=== PATIENT | female | born 1940 | race Caucasian/White ===

== ENCOUNTER → 2017-09-04 | Outpatient (CLI) | payer OTHER, BC | LOC: NUC 10:06 | DX: M85.89 Other specified disorders of bone density and structure, multiple sites (principal); Z78.0 Asymptomatic menopausal state ==

== ENCOUNTER → 2017-09-26 | Outpatient (CLI) | payer OTHER, BC | LOC: RAD 03:46 | DX: Z12.31 Encounter for screening mammogram for malignant neoplasm of breast (principal) ==

== ENCOUNTER → 2018-03-19 | Outpatient (CLI) | payer OTHER, BC | LOC: ULTRA 08:58 | DX: R10.11 Right upper quadrant pain (principal); K80.20 Calculus of gallbladder without cholecystitis without obstruction; K76.89 Other specified diseases of liver ==

== ENCOUNTER → 2018-04-02 | Outpatient (CLI) | payer OTHER, BC | LOC: CAT 09:01 | DX: K80.20 Calculus of gallbladder without cholecystitis without obstruction (principal); K57.30 Diverticulosis of large intestine without perforation or abscess without bleeding; J98.11 Atelectasis; K76.89 Other specified diseases of liver; M47.896 Other spondylosis, lumbar region ==

== ENCOUNTER 2018-04-24 05:33 | Observation (INO) | payer OTHER, BC ==
[~2018-04-24] VITALS: Ht 154.9 cm; Wt 68.0 kg
--- NOTE | ~2018-04-24 | O ---
[facility] [place] [address] OPERATIVE REPORT Name: YAHAIRA CHANCE Room #: 455-P [facility] MKaz#: [id number] Admission: 04/24/18 Attend Phys: Bright Fish MD Discharge: Date of : 44 Report #: [id number] THIS REPORT FOR: //name// CC: Yovani Strickland MD DATE OF SERVICE: 04/24/2018 PREOPERATIVE DIAGNOSIS: Cholecystitis with cholelithiasis. POSTOPERATIVE DIAGNOSIS: Cholecystitis with cholesterolosis. PROCEDURE PERFORMED: Laparoscopic cholecystectomy with intraoperative cholangiogram. ANESTHESIA: General. SURGEON: Bright Fish MD COMPLICATIONS: None. ESTIMATED BLOOD LOSS: 5 mL. FINDINGS: Gallbladder did have significant adhesions over it consistent with inflammation. There is some adhesion in the right lateral abdomen of the right colon to the wall. These were taken down. The gallbladder was opened off the field contained small soft cholesterol material possibly what was seen on ultrasound. DESCRIPTION OF PROCEDURE: With the patient under general anesthesia, IV antibiotic was administered. Timeout was performed. Abdomen was prepped and draped in sterile fashion. A 0.25%% Marcaine was used to anesthetize the skin. The patient has an infraumbilical incision also 2 incisions. I decided to go above the umbilicus. A small curved incision about 2 cm was made above the umbilicus. Fascia was identified. The fascia was then grasped with hemostat. Fascia was then opened under visualization. A 0 Vicryl suture was placed on the fascia for retraction. Veress needle was then placed through the peritoneum. Abdominal cavity was then insufflated with CO2 without difficulty. After creating pneumoperitoneum pressure of 15, 11 mm trocar was placed into the pneumoperitoneum without difficulty. Two 5 mm trocars were placed in the right upper quadrant and a 5 mm trocar was placed in the right epigastrium. There was some adhesion involving the ascending colon to the abdominal wall. These were taken down. The patient does have some pain that goes lower on her right side. Possibly could be due to these adhesions. The gallbladder was lifted over the [facility] [address] [place] [address] OPERATIVE REPORT Name: YAHAIRA CHANCE Room #: 455-P [facility]..#: [id number] Admission: 04/24/18 Attend Phys: Bright Fish MD Discharge: Date of : 42 Report #: [id number] liver and there was extensive adhesion on the ventral surface of the gallbladder. These adhesions were taken down. The peritoneum was then dissected free medial and laterally. The cystic duct was then isolated. The common duct was partially visualized. Noted to be medial and posteriorly located. The common duct was in the usual position. The cystic duct to the gallbladder junction was identified. Clip was placed here. Cholangiogram catheter was then inserted. Fluoroscopic cholangiogram was obtained. Common bile duct filled out well. The cholangiogram catheter was identified in the cystic duct. No defect seen in the common duct. Dye flowed readily into the duodenum. The cholangiogram catheter was then removed. The proximal cystic duct was then clipped x 2. The cystic duct was then divided. The anterior branch of the cystic artery was smaller size. This was clipped x 2 proximally and 1 distally and then divided. A larger lateral posterior artery was found. This was also clipped x 2 proximally and 1 distally and then divided. Gallbladder was free from the liver bed, placed in a specimen bag, retrieved through the infraumbilical port. Palpating of the gallbladder and really feeling stone. The gallbladder was opened off the field. There is a millimeter size, soft cholesterol material, possibly what was seen on ultrasound. The patient's liver bed was checked. Hemostasis obtained. By: 2143 Bright Fish MD /nt
--- NOTE | ~2018-04-24 | PATH ---
[facility] [place] [address] PATHOLOGY RPT PROCEDURE Name: ADA CHANCE Room #: 455-P [facility] Dede Benitez#: [id number] Admission: 04/24/18 Date of : 44 Discharge: 04/25/18 Report #: [id number] Path Case #: [id number] [facility] Accession Number: [id number] . 01 Material submitted: . BIOPSY GALLBLADDER . 01 Clinical history: . Cholecystitis, cholelithiasis . 02 Diagnosis: Gallbladder, cholecystectomy: - Mild chronic cholecystitis. - No stones identified (please see gross dictation). (IUV:amirah; 04/28/2018) QMS/04/28/2018 . 02 Electronically signed: . Adrienne Baig MD, Pathologist NPI- [id number] . 01 Gross description: . The specimen is received in formalin, labeled "Ada Jackelin, gallbladder". Received is a previously opened gallbladder measuring 8.1 x 2.8 x 1.3 cm in greatest dimensions displaying avery-copeland serosal surfaces. Opening the specimen reveals a velvety, light copeland mucosa with a gallbladder wall thickness of 0.1 cm. No distinct nodules or lesions are noted grossly. Calculi are not present upon filtration of the gallbladder and the specimen container, and no masses or lesions are noted grossly. Ceramic Designer sections from the cystic neck, body, and fundus of the gallbladder are submitted in cassette A1. (CAA; 04/25/2018) QAC/QAC . 02 Pathologist provided ICD-10: K81.1 . 02 CPT . 318644 Performed at: [address], [place] [id number] MD Merritt Ward MD Phone: [phone] Performed at: [address], [place] [id number] MD Adrienne Baig MD Phone: [phone]
--- NOTE | ~2018-04-24 | H ---
[facility] [place] [address] HISTORY AND PHYSICAL Name: YAHAIRA CHANCE Room #: PRE [facility] M.R.#: [id number] Admission: Attend Phys: Bright Fish MD Discharge: Date of : 42 Report #: [id number] THIS REPORT FOR: //name// CC: Yovani Strickland PREOPERATIVE DIAGNOSES: Cholecystitis with cholelithiasis. HISTORY OF PRESENT ILLNESS: The patient is a 77-year-old who has had abdominal pain. The patient was seen by Dr. Strickland and an ultrasound showed multiple mobile gallstones. There is also gallbladder wall thickening. The patient thought that her pain started when she was taking anti-inflammatory because of arthritis in her right knee. The patient also has been taking omeprazole, which has not seemed to help the pain. She has had 4 episodes of fairly significant pain. The pain is in the mid upper abdomen occasionally. It is in the lower part of the abdomen. She has had associated nausea. No vomiting. She does have increased belching. No bloating. No diarrhea. The patient has trouble eating food such as raw vegetables, broccoli. No problem with spicy foods. The patient had a colonoscopy 3 years ago. The patient back in 1992 was seen in this office for abdominal pain evaluation. There is a note that suggested that possibly her symptoms are due to gallbladder. The patient did have an EGD back then. She did have H. pylori back in 1992, was treated with ampicillin, Flagyl and Pepto-Bismol. The patient did have a CT scan after I saw her in the office because some of her pain is lower and her elderly age. The patient's gallbladder appeared normal. There is no wall thickening. No ductal dilatation. The stones are not visible on CAT scan. Her bowels looked okay. There is diverticulosis, but no evidence of a diverticulitis. The patient has grade 1 anterolisthesis of L4. The CT finding was discussed with the patient and she was recommended to proceed with laparoscopic cholecystectomy. PAST MEDICAL HISTORY: The patient has arthritis in her knee, injury from playing tennis. PAST SURGICAL HISTORY: She had . She had umbilical hernia repair when she was 19. ALLERGIES: SHE IS ALLERGIC TO SULFA AND POSSIBLE PENICILLIN AND ALSO HAS ISSUES WITH NASAL SPRAYS. MEDICATIONS: Atenolol 25 daily, sulindac 150 daily, atorvastatin 10 mg daily, omeprazole 40 mg daily. FAMILY HISTORY: Mother with kidney disease. Sibling with diabetes. SOCIAL HISTORY: The patient is retired. [place] [address] HISTORY AND PHYSICAL Name: YAHAIRA CHANCE Room #: [facility]..#: [id number] Admission: Attend Phys: Bright Fish MD Discharge: Date of : 42 Report #: [id number] REVIEW OF SYSTEMS: Unremarkable. PHYSICAL EXAMINATION: GENERAL: She is an elderly female in no acute distress. HEENT: Pupils react to light. Sclerae are nonicteric. Oropharynx is clear. Extraocular muscles are intact. NECK: Soft and supple, no masses, no JVD. LUNGS: Clear to auscultation. No wheezes. No rhonchi. HEART: Regular rate and rhythm. No murmur or gallop. ABDOMEN: Soft, mild to moderate tenderness in right upper quadrant. This is localized to the area of gallbladder. No diffuse tenderness, guarding or rigidity. There is no mass, no ascites. EXTREMITIES: No cyanosis, clubbing, edema. She does have arthritic changes in right knee. IMPRESSION AND PLAN: The patient is a 77-year-old with episodes of abdominal pain. Part of this even dates back to 1992. She did have Helicobacter pylori back then that was treated. She had an ultrasound that showed gallstones and some wall thickening. CT scan was performed. No tumors or masses identified. The gallstone was not seen on CT. The wall does not look thick on the CT scan. The patient, I believe, has symptomatic cholecystitis with cholelithiasis. Surgical intervention is recommended. The patient is being brought in for laparoscopic cholecystectomy. The procedure was discussed in detail. Risk of bleeding, infection, common bile duct injury was discussed. The patient understands and wishes to proceed. By: 1621 1717 Bright Fish MD /nt
--- NOTE | ~2018-04-24 | EKG ---
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
[~2018-04-24 05:33] MED LIST: ATENOLOL 25 MG25 M1 PO; CALCIUM 500 +1 EAC5 PO; FISH OIL 1,001000 M2 PO; HYDROCHLOROTHIA25 M2 PO; LIPITOR10 MG PO; OMEPRAZOLE40 MG PO; SULINDAC 150 M150 MG PO
[2018-04-24 08:44] LABS: CALCIUM 8.9 mg/dL (8.5-10.1); CREATININE 0.7 mg/dL (0.6-1.0); POTASSIUM 3.3 mmol/L (3.5-5.1)
[2018-04-24 09:34] VITALS: BP 138/64
[2018-04-24 12:25] VITALS: BP 111/51
[2018-04-24 15:34] VITALS: BP 116/59
[2018-04-24 19:18] VITALS: BP 133/60
[2018-04-24 23:38] VITALS: BP 145/53
[2018-04-25 04:28] VITALS: BP 115/52
[2018-04-25 05:58] LABS: HEMATOCRIT 33.9 % (37.0-47.0); HEMOGLOBIN 11.7 gm/dL (12.0-15.0); MCH 29.3 pg (26.0-34.0); MCHC 34.5 g/dL (28.0-37.0); MCV 85.1 fL (80.0-100.0); RBC 3.98 mil/uL (4.20-5.00); RDW 14.2 % (10.5-14.5); WBC 8.6 thou/uL (4.0-11.0)
[2018-04-25 08:00] VITALS: BP 113/52
[2018-04-25 13:44] LABS: CALCIUM 8.4 mg/dL (8.5-10.1); CREATININE 0.8 mg/dL (0.6-1.0); POTASSIUM 4.1 mmol/L (3.5-5.1)
[2018-04-25 13:50] VITALS: BP 113/52
== END 2018-04-25 14:15 | disposition home or self-care (01) ==
LOC: TBA 05:33 → OR 05:33 → 4W 12:29 → OR 15:29 → ENTRNSPT 04-25 14:06 → EDTRNSPTSTS 04-25 14:11 → 4W 04-25 14:15
PROVIDERS: Surgery
DX: K80.10 Calculus of gallbladder with chronic cholecystitis without obstruction (principal); M17.11 Unilateral primary osteoarthritis, right knee; M54.16 Radiculopathy, lumbar region; M54.5 Low back pain; Z98.890 Other specified postprocedural states
CPT/HCPCS: 50010; 50101; 50411; 50555; 50558; 51489; 53307; 53310; 53312; 55245; 55317; 56462; 56525; 56526; 62110; 62900; 70005

== ENCOUNTER → 2018-10-09 | Outpatient (CLI) | payer OTHER, BC | LOC: RAD 11:08 | DX: Z12.31 Encounter for screening mammogram for malignant neoplasm of breast (principal) ==

== ENCOUNTER → 2019-10-15 | Outpatient (CLI) | payer OTHER, BC | LOC: RAD 12:15 | DX: Z12.31 Encounter for screening mammogram for malignant neoplasm of breast (principal) ==

== ENCOUNTER → 2019-11-26 | Outpatient (CLI) | payer OTHER, BC ==
[2019-11-26 13:01] LABS: CREATININE 0.9 mg/dL (0.6-1.0)
== END ==
LOC: CAT 12:13
PROVIDERS: Nurse Practitioner
DX: D73.4 Cyst of spleen (principal); R16.1 Splenomegaly, not elsewhere classified; M47.816 Spondylosis without myelopathy or radiculopathy, lumbar region; Z90.49 Acquired absence of other specified parts of digestive tract

== ENCOUNTER → 2020-10-25 | Outpatient (CLI) | payer OTHER, BC | LOC: BC 10:01 | PROVIDERS: ATTEND Neuromusculoskeletal Medicine & OMM | DX: Z12.31 Encounter for screening mammogram for malignant neoplasm of breast (principal) ==

== ENCOUNTER → 2021-02-08 | Outpatient (CLI) | payer OTHER, BC | LOC: NUC 15:07 | PROVIDERS: ATTEND Neuromusculoskeletal Medicine & OMM | DX: M81.0 Age-related osteoporosis without current pathological fracture (principal) ==

== ENCOUNTER → 2021-05-03 | Outpatient (CLI) | payer OTHER, BC ==
[~2021-05-03] VITALS: Ht 154.9 cm; Wt 73.9 kg
[~2021-05-03] MED LIST changes: +CALCIUM500 MG PO; +CURCUMIN1 GM PO; +FISH OIL 1,0001 EAC9 PO; +MAGNESIUM250 M1 PO; +TURMERIC500 M2 PO; +VITAMIN D350 MC3 PO; +ZINC50 M3 PO
--- NOTE | 2021-05-05 08:14 | P ---
[facility] [place] [address] PROCEDURE REPORT Name: YAHAIRA CHANCE [id number] Admission: 05/03/21 Attend Phys: Delbert Razo Discharge: Date of : 42 Report #: [id number] THIS REPORT FOR: cc: Sathish Strickland,Delbert Hansen MD ~ cc: Sathish Strickland MD DATE OF SERVICE: 05/03/2021 PROCEDURE PERFORMED: Colonoscopy with polypectomies. HISTORY OF PRESENT ILLNESS: The patient is a 80-year-old female with recent history of abdominal pain and diarrhea as well as gastroesophageal reflux disease. Upper endoscopy was just performed, which was essentially negative. Biopsies were obtained to rule out celiac sprue. Plan is for colonoscopy. No family history of colon cancer. The patient reports diarrhea has resolved at this time. DESCRIPTION OF PROCEDURE: The risks and benefits of the procedure were explained to the patient, those risks including but not limited to bleeding, perforation and the risk of sedation. She understood these risks and gave informed consent. Sedation was given using propofol per Anesthesia. Next, a digital rectal exam was initially performed, which was normal. Next, using a standard Olympus colonoscope, the scope was placed in the patient's anus and advanced under direct vision to the cecum. The overall prep was excellent. The cecum and ileocecal valve were normal in appearance. In the ascending colon, two 5-7 mm sessile polyps were noted, both removed by snare cautery, otherwise normal. The transverse and descending colon were normal. Scattered diverticula were noted in the sigmoid colon. No evidence of inflammation, otherwise normal. Random biopsies were obtained today to rule out the possibility of microscopic colitis. The rectal mucosa was normal. On retroflexion, no abnormalities were noted. The scope was then withdrawn and the procedure terminated. The patient tolerated the procedure well. IMPRESSION: 1. Two ascending colon polyps. 2. Sigmoid diverticulosis. 3. Otherwise, normal colonoscopy. RECOMMENDATIONS: 1. Await biopsy results. 2. Repeat colonoscopy in 5 years. 3. The patient reports diarrhea has subsided at this time. If recurs, we will consider further workup. We will await biopsies at this time to rule out microscopic colitis as well as celiac sprue. [address] [address] PROCEDURE REPORT Name: YAHAIRA CHANCE Room #: REG RICHARD Benitez#: [id number] Admission: 05/03/21 Attend Phys: Delbert Razo Discharge: Date of : 42 Report #: [id number] Thank you for allowing me to participate in her care. <ELECTRONICALLY SIGNED> By: Delbert South MD 05/05/21 0814 1217 15 Delbert South MD /nt
--- NOTE | 2021-05-05 08:14 | P ---
[facility] [place] [address] PROCEDURE REPORT Name: YAHAIRA CHANCE Room #: REG RICHARD KiahBangEzra#: [id number] Admission: 05/03/21 Attend Phys: Delbert Razo Discharge: Date of : 42 Report #: [id number] THIS REPORT FOR: cc: Sathish Strickland,Delbert Hansen MD ~ cc: Sathish Strickland MD DATE OF SERVICE: 05/03/2021 PROCEDURE PERFORMED: Upper endoscopy with biopsies. HISTORY OF PRESENT ILLNESS: The patient is a 80-year-old female with recent history of abdominal pain as well as diarrhea. She has a history of gastroesophageal reflux disease, is already on daily PPI therapy. Plan is for EGD and colonoscopy today. DESCRIPTION OF PROCEDURE: The risks and benefits of the procedure were explained to the patient, those risks including but not limited to bleeding, perforation and the risk of sedation. She understood these risks and gave informed consent. Sedation was given using propofol per Anesthesia. Next, using a standard Olympus upper endoscope, the scope was placed in the patient's mouth and advanced under direct vision through the esophagus, stomach and into the second portion of the duodenum. The larynx was normal in appearance. The esophagus was normal throughout. The GE junction was normal. The gastric fundus was normal. There was a mild gastritis noted in the gastric body and antrum. Biopsies were obtained to rule out H. pylori. Multiple gastric polyps were also noted. Biopsies were obtained. The pylorus was normal and patent. The duodenal bulb and first portion were normal. In the second portion, a small nodule was noted. This was removed with cold forceps as it was approximately 4 mm in size. Also, random biopsies were obtained in the second portion of the duodenum to rule out the possibility of celiac sprue. The scope was then withdrawn and the procedure terminated. The patient tolerated the procedure well. IMPRESSION: 1. Mild gastritis. 2. Gastric polyps. 3. Small duodenal nodule. 4. Otherwise, normal upper endoscopy. RECOMMENDATIONS: 1. Await biopsy results. 2. Continue daily PPI therapy. 3. We will proceed with colonoscopy next today. [facility] [address] [place] [address] PROCEDURE REPORT Name: ROBSONYAHAIRA JOLEEN Room #: REG [facility] Eli#: [id number] Admission: 05/03/21 Attend Phys: Delbert Razo Discharge: Date of : 42 Report #: [id number] Thank you for allowing me to participate in her care. <ELECTRONICALLY SIGNED> By: Delbert South MD 05/05/21 0814 1144 07 Delbert South MD /nt
--- NOTE | 2021-05-05 18:06 | PATH ---
[facility] [place] [address] PATHOLOGY RPT PROCEDURE Name: ADA CHANCE Room #: REG LUCHOMargo Arana.#: [id number] Admission: 05/03/21 Date of : 42 Discharge: Report #: [id number] Path Case #: [id number] [facility] Accession Number: [id number] . 01 Material submitted: . PART A: duodenum - DUODENAL BX R/O C. SPRUE PART B: duodenum - DUODENAL NODULE BX PART C: gastrointestinal site - GASTRIC BX R/O H. PYLORI PART D: gastrointestinal site - GASTRIC POLYPS BX PART E: colon - ASCENDING COLON POLYPS. Modifiers: ascending PART F: colon - RANDOM COLON BX R/O MICROSCOPIC COLTITIS . 01 Clinical history: . EGD COLONOSCOPY DIARRHEA, ABD PAIN, GERD GASTRITIS . 02 Diagnosis: A. Small bowel mucosa, duodenum, endoscopic biopsy: - No diagnostic abnormalities present. - Negative for villous blunting or increase in intraepithelial lymphocytes. . B. Small bowel mucosa, duodenal nodule, endoscopic biopsy: - Markedly dilated lymphatic channels within lamina propria, compatible with a nodule. - Overlying mucosa showing no evidence of villous blunting or increase in intraepithelial lymphocytes. - Negative for active inflammation, dysplasia or malignancy. . C. Gastric mucosa, gastritis, endoscopic biopsy: - Mild reactive gastropathy. - Negative for intestinal metaplasia or atrophy. - Negative for Helicobacter pylori (properly controlled immunohistochemical stain performed). . D. Polyp, gastric polyp, endoscopic biopsy: - Fundic gland polyps. - Negative for dysplasia or malignancy. . E. Polyps, ascending colon polyps, endoscopic biopsy: - Cauterized hyperplastic polyps. - Negative for dysplasia or malignancy. . F. Large intestine mucosa, random colon, endoscopic biopsy: - Mild focal active colitis. - Negative for microscopic colitis. [facility] [address] [place] [address] PATHOLOGY RPT PROCEDURE Name: ADA CHANCE Room #: REG [facility] Yasmeen.#: [id number] Admission: 05/03/21 Date of : 42 Discharge: Report #: [id number] Path Case #: [id number] - Negative for dysplasia or malignancy. [facility] 05/05/2021 [facility] Local . 02 Comment: Part F: Sections of the colonic mucosa designated "random colon" show focal cryptitis, and a moderately cellular lamina propria composed predominantly of lymphocytes and plasma cells and occasional eosinophils. Surface ulceration is not identified. There are no crypt abscesses, granulomas or viral inclusions. The process affects all the fragments with a similar intensity. Given the description, the differential diagnosis includes focal acute self-limited episode of colitis, resolving episode of acute colitis, acute/chronic diverticulitis, medication/drug induced colitis amongst other possibilities. Please correlate with clinical as well as endoscopic findings. (IUV/db; 05/05/2021) . 02 Electronically signed: . Adrienne Baig MD, Pathologist NPI- [id number] . 01 Gross description: . A. Received in formalin labeled "Jackelin, Ada, duodenal BX rule out C. sprue" are multiple copeland-brown soft tissue fragments measuring in aggregate 1.3 x 0.6 x 0.1 cm. The specimen is submitted entirely in A1. . B. Received in formalin labeled "Jackelin, Ada, duodenal nodule BX" are multiple copeland-brown soft tissue fragments measuring in aggregate 1.2 x 0.6 x 0.1 cm. The specimen is submitted entirely in B1. . C. Received in formalin labeled "Jackelin, Ada, gastric BX rule out H. pylori" are multiple copeland-brown soft tissue fragments measuring in aggregate 1.7 x 0.3 x 0.1 cm. The specimen is submitted entirely in C1. . D. Received in formalin labeled "Jackelin, Ada, gastric polyps BX" are multiple copeland-brown soft tissue fragments measuring in aggregate 1.2 x 0.6 x 0.1 cm. The specimen is submitted entirely in D1. . E. Received in formalin labeled "Jackelin, Ada, ascending colon polyps" are 2 copeland-brown soft tissue fragments measuring in aggregate 0.8 x 0.7 x 0.3 cm. The specimen is submitted entirely in E1. . F. Received in formalin labeled "Jackelin, Ada, random colon BX rule out microscopic colitis" are multiple copeland-brown soft tissue fragments measuring in aggregate 1.4 x 0.3 x 0.1 cm. The specimen is submitted entirely in F1. ([place]; 05/04/2021) [facility] 05/04/2021 0926 Local . [address] [address] PATHOLOGY RPT PROCEDURE Name: ADA CHANCE Room #: REG RICHARD Arana.#: [id number] Admission: 05/03/21 Date of : 42 Discharge: Report #: [id number] Path Case #: [id number] Pathologist provided ICD-10: K31.9, K31.7, K63.5, K52.9, Z12.11, R19.7, R10.9, K21.00 . 02 CPT . 568557, 977181, 020302, 663806, 036931, 544893, [id number] Specimen Comment: A courtesy copy of this report has been sent to [phone], [phone] Specimen Comment: [id number] Specimen Comment: Report sent to / DR BHATT Performed at: 01 [facility] [address], [place] [id number] MD Surendra Bob MD Phone: [phone] Performed at: [address] [facility] [address] [id number] MD Adrienne Baig MD Phone: [phone]
== END | disposition home or self-care (01) ==
LOC: GI 10:21
PROVIDERS: ATTEND Specialist
DX: K52.9 Noninfective gastroenteritis and colitis, unspecified (principal); R10.9 Unspecified abdominal pain; K21.9 Gastro-esophageal reflux disease without esophagitis; K63.5 Polyp of colon; K57.30 Diverticulosis of large intestine without perforation or abscess without bleeding; K31.9 Disease of stomach and duodenum, unspecified; K31.7 Polyp of stomach and duodenum; I10 Essential (primary) hypertension; E78.5 Hyperlipidemia, unspecified; Z98.890 Other specified postprocedural states; Z79.899 Other long term (current) drug therapy; Z90.49 Acquired absence of other specified parts of digestive tract; Z88.2 Allergy status to sulfonamides; Z88.8 Allergy status to other drugs, medicaments and biological substances
CPT/HCPCS: 62110; 62900

== ENCOUNTER → 2021-10-25 | Outpatient (CLI) | payer OTHER, BC ==
[2021-10-25 12:30] LABS: CREATININE 0.8 mg/dL (0.6-1.0)
== END ==
LOC: CAT 11:51
PROVIDERS: ATTEND Nurse Practitioner
DX: R91.1 Solitary pulmonary nodule (principal); K76.89 Other specified diseases of liver; E27.9 Disorder of adrenal gland, unspecified

== ENCOUNTER → 2021-11-15 | Outpatient (CLI) | payer OTHER, BC | LOC: BC 10:23 | PROVIDERS: ATTEND Nurse Practitioner | DX: Z12.31 Encounter for screening mammogram for malignant neoplasm of breast (principal) ==